=== PATIENT | male | born 1990 | race Caucasian/White ===

== ENCOUNTER 2020-08-15 01:30 | Outpatient (CLI) | payer OTHER, SELFPAY ==
[2020-08-15 19:31] LABS: SARS-CoV-2 RNA PCR Negative
== END 2020-08-15 01:31 | disposition home or self-care (01) ==
LOC: ANHCOVIDDT 01:30
PROVIDERS: PCP Physician Assistant; Visit Provider Otolaryngology
DX: Z01.818 Encounter for other preprocedural examination (principal); Z20.828 Contact with and (suspected) exposure to other viral communicable diseases
CPT/HCPCS: 87635; C9803; U0003

== ENCOUNTER 2020-08-17 00:45 | Day surgery (SDC) | payer OTHER, SELFPAY ==
[2020-08-06 15:31] VITALS: BMI 28.0
--- NOTE | 2020-08-13 16:03 | P.PNAN_ITS ---
Anes - Initial Pre Proc Eval Procedure: Operation Date: 08/17/20 10:00 Proposed Procedures p Bilateral Ear Exam Under Anesthesia With Cerumen Removal - Salvador Berger MD Date/Time: 08/13/20 16:03 Surgeon: Salvador Berger MD Pre Op Diagnosis: Ear Wax Impaction Patient Data Age: 30 Gender: M Height: 1.52 m Weight: 65 kg Allergies Allergy/AdvReac Type Severity Reaction Status Date / Time No Known Allergies Allergy Verified 08/06/20 15:18 Home Medications Medication Instructions Recorded Confirmed Type cyanocobalamin (vitamin B-12) 2,000 mcg PO QAM 08/06/20 08/06/20 History cyanocobalamin (vitamin B-12) 500 mcg PO QAM 08/06/20 08/06/20 History levothyroxine 112 mcg PO DAILY 08/06/20 08/06/20 History loratadine 10 mg PO QAM 08/06/20 08/06/20 History simvastatin 20 mg PO DAILY 08/06/20 08/06/20 History Patient hx anesthesia problems: none Family hx anesthesia problems: none [facility] Past Medical History Medical History (Updated 08/13/20 @ 16:04 by Brigido Flores MD) Hypothyroidism Overweight Social History Social History Smoking status: Never smoker Spiritual care concerns: No Anes - Eval Final PreProcedure Day of Procedure 08/13/20 16:03 Patient weight: overweight Heart: regular rate and rhythm Lungs: clear to auscultation and normal air movement Airway: Mallampati scale class II Neurological: alert and oriented Last oral intake: >/= 8 hours ASA classification: III Emergent: no Anesthetic plan: proceed Anesthesia type and monitoring: general LMA Informed Consent: The patient's anesthetic plan and its attendant risks and benefits were discussed with the patient/family/POA. Questions were solicited and answers provided to the satisfaction of the patient/family/POA.
[2020-08-17 08:14] VITALS: BP 131/82; PULSE 69; RESP 20; TEMP 36.6; O2SAT 99
--- NOTE | 2020-08-17 08:22 | ECG_ITS ---
Measurements Intervals [place] Rate: 70 P: 14 DE: 122 QRS: 16 QRSD: 98 T: 12 QT: 402 QTc: 436 Interpretive Statements SINUS RHYTHM WITH SINUS ARRHYTHMIA DELAYED PRECORDIAL R/S TRANSITION BORDERLINE ECG Electronically Signed On 08-17-2020 9:53:29 [employer] by Kevin Ram D.O.
--- NOTE | 2020-08-17 09:19 | WPDHPUPDATE1 ---
History and Physical Update Update Date/Time: 08/17/20 09:19 History and Physical has been reviewed, including an updated exam of the patient. There are NO changes in the patient's condition. Risks, benefits, and alternatives have been discussed and questions answered. Patient agrees to proceed with procedure. Bilateral EUA ears and cerumen removal
[2020-08-17] MEDS: LACTATED RINGERS 1,000 ML 30 ML IV CONT (09:35)
--- NOTE | 2020-08-17 10:21 | PM.PROC ---
Procedure Note - Detailed Date of procedure: 08/17/20 Pre-op diagnosis: Ear Wax Impaction Post-op diagnosis: other (Bilateral cerumen impaction, right TM perforation with granulation) Procedure performed: EUA ears with cerumen removal Description of procedure: Patient was brought to OR, placed under general anesthesia via laryngeal mask. Timeout was performed and the right ear was examined under microscopy. Purulent fluid in right EAC. This was debrided extensively and revealed granulation along the TM that was removed revealing a perforation with heavy granulation and inflammatory changes. Left EAC filled with cerumen and debrided extensively. Anesthesia: GLMA Surgeon: Salvador Berger MD Estimated blood loss (mL): 1 Drains: No Packing: No Pathology: none sent Complications: No immediate complications Condition: stable Disposition: same day Findings: Right granulation with TM perforation and infection
[2020-08-17 10:24] VITALS: BP 121/63; PULSE 68; RESP 15; TEMP 36.2; O2SAT 100
[2020-08-17 10:39] VITALS: BP 98/62; PULSE 108; RESP 15; O2SAT 98
[2020-08-17 10:45] VITALS: BP 106/71; PULSE 98; RESP 16; O2SAT 98
[2020-08-17] MEDS: ONDANSETRON INJ 4 MG/2 ML VIAL IV PUSH (10:57)
[2020-08-17 11:10] VITALS: BP 107/79; PULSE 110; RESP 16; O2SAT 99
== END 2020-08-17 11:19 | disposition home or self-care (01) ==
PROVIDERS: PCP Physician Assistant; Visit Provider Otolaryngology
PROC: (CPT 69210; principal; 2020-08-17 10:00)
DX: H61.23 Impacted cerumen, bilateral (principal); H72.91 Unspecified perforation of tympanic membrane, right ear; E03.9 Hypothyroidism, unspecified
CPT/HCPCS: 69210; 93005; J2250; J2370; J2405; J2704; J7120